=== PATIENT | female | born 1965 | race Two or more races ===

== ENCOUNTER 2024-12-16 07:35 | Emergency (ER) | payer OTHER ==
[~2024-12-16] VITALS: Ht 167.6 cm; Wt 113.4 kg
[2024-12-16] MEDS ORDERED: TOPROL XL100 M1 (07:59)
[2024-12-16] MEDS ORDERED: AVAPRO300 MG (08:02)
[2024-12-16] MEDS ORDERED: ZANAFLEX2 M1 (08:02)
[2024-12-16] MEDS ORDERED: NORFLEX100MG PO (08:56)
[2024-12-16] MEDS ORDERED: KETOROLAC TROMETHAMINE 60 MG VIAL IM ONE ×2 (08:57→09:00)
[2024-12-16] MEDS ORDERED: ORPHENADRINE CITRATE 30 MG/ML AMPUL ONE (08:57)
[2024-12-16] MEDS ORDERED: ORPHENADRINE CITRATE 30 MG/ML AMPUL IM ONE (09:00)
== END 2024-12-16 09:26 | disposition home or self-care (01) ==
LOC: ER 07:35
DX: M54.9 Dorsalgia, unspecified (principal); I10 Essential (primary) hypertension

== ENCOUNTER 2025-01-12 07:19 | Outpatient (CLI) | payer OTHER ==
[~2025-01-12 07:19] MED LIST: AVAPRO300 MG; NORFLEX100MG PO; TOPROL XL100 M1; ZANAFLEX2 M1
== END 2025-01-12 07:24 | disposition home or self-care (01) ==
LOC: RAD 07:19
PROVIDERS: ATTEND General Practice
DX: M47.25 Other spondylosis with radiculopathy, thoracolumbar region (principal); M51.16 Intervertebral disc disorders with radiculopathy, lumbar region

== ENCOUNTER 2025-02-15 06:31 | Outpatient (CLI) | payer OTHER | END 2025-02-15 06:36 | disposition home or self-care (01) | LOC: LAB 06:31 | PROVIDERS: ATTEND General Practice | DX: K85.30 Drug induced acute pancreatitis without necrosis or infection (principal) ==

== ENCOUNTER 2025-03-04 15:34 | Emergency (ER) | payer OTHER ==
[~2025-03-04] VITALS: Ht 167.6 cm; Wt 113.4 kg
[2025-03-04] MEDS ORDERED: HYDROCHLOROTHIA25 MG PO (16:48)
[2025-03-04] MEDS ORDERED: TRAMADOL HCL 50 MG TABLET PO STA (17:02)
[2025-03-04] MEDS ORDERED: BARIUM SULFATE 450 ML ORAL.SUSP PO ONE (17:12)
[2025-03-04 18:09] LABS: BASO % 0.7 % (0.1-1.2); EOS # 0.21 (0.04-0.54); EOS % 2.0 % (0.7-7.0); LYMPH # 1.31 (1.18-3.74); LYMPH % 12.5 % (19.3-53.1); MEAN PLATELET VOLUME 10.00 fl (9.4-12.4); MONO # 0.64 (0.24-0.82); MONO % 6.1 % (4.7-12.5); NEUT # 8.22 (1.56-6.13); NEUT % 78.4 % (34.0-71.1); RED CELL DISTRIBUTION WIDTH 15.6 % (11.6-14.4)
[2025-03-04 18:10] LABS: URINE BLOOD LARGE; URINE GLUCOSE NEGATIVE (NEGATIVE); URINE KETONE 15 (NEGATIVE); URINE LEUKOCYTE SMALL; URINE NITRATE POSITIVE; URINE UROBILINOGEN 1.0 E.U./dl
[2025-03-04 18:53] LABS: URINE APPEARANCE TURBID; URINE BILIRRUBIN MODERATE (NEGATIVE); URINE COLOR BROWN; URINE PROTEIN >=300 (NEGATIVE)
[2025-03-04 18:54] LABS: URINE RBC LOADED /HPF
[2025-03-04 18:55] LABS: URINE BACTERIA MODERATE; URINE CRYSTALS MANY /HPF; URINE WBC 0-2 /hpf
[2025-03-04 18:56] LABS: URINE MUCUS NEGATIVE
[2025-03-04 19:20] LABS: ALT/SGPT 18.0 U/L (12-78); AST/SGOT 41.0 U/L (15-37); BILIRUBIN TOTAL 0.69 mg/dL (0.3-1.2); BUN CREA RATIO 15.0 (7.0-25.0); CREATININE SERUM 1.76 mg/dL (0.55-1.02); GFR 29.45; GLOBULINA 3.7 G/DL (2.4-3.5); GLUCOSE FASTING 98.0 mg/dL (65-100); OSMOLALITY SERUM 286.0 MOSM/KG (275-295)
[2025-03-04] MEDS ORDERED: CEFTRIAXONE SODIUM 2,000 MG VIAL IV STA (19:51)
[2025-03-04] MEDS ORDERED: ORPHENADRINE CITRATE 30 MG/ML AMPUL IM STA (19:56)
[2025-03-04] MEDS ORDERED: ORPHENADRINE CITRATE 30 MG/ML AMPUL ONE (20:45)
[2025-03-04] MEDS ORDERED: CEFTRIAXONE SODIUM 2,000 MG VIAL ONE (20:46)
== END 2025-03-04 22:05 | disposition home or self-care (01) ==
LOC: ER 15:34
PROVIDERS: General Practice
DX: N39.0 Urinary tract infection, site not specified (principal); N20.0 Calculus of kidney; K57.30 Diverticulosis of large intestine without perforation or abscess without bleeding; I10 Essential (primary) hypertension

== ENCOUNTER 2025-04-26 06:13 | Outpatient (CLI) | payer OTHER ==
[~2025-04-26 06:13] MED LIST changes: +HYDROCHLOROTHIA25 MG PO
[2025-04-26 06:51] LABS: URINE APPEARANCE Clear; URINE BILIRRUBIN Negative (NEGATIVE); URINE BLOOD Negative; URINE COLOR Yellow; URINE GLUCOSE Negative (NEGATIVE); URINE KETONE Negative (NEGATIVE); URINE LEUKOCYTE Trace; URINE NITRATE Negative; URINE PROTEIN Negative (NEGATIVE); URINE UROBILINOGEN 0.2 E.U./dl
[2025-04-26 06:53] LABS: URINE BACTERIA 20.3 uL (0.0-1933); URINE EPITHELIAL CELLS 11.3 uL (0.0-38.8); URINE RBC 6.1 uL (0.0-20.8); URINE WBC 18.7 uL (0.0-23.2)
[2025-04-26 06:58] LABS: URINE CAST 0.14 uL (0.0-1.40)
[2025-04-26 07:01] LABS: BASO % 0.7 % (0.1-1.2); EOS # 0.27 (0.04-0.54); EOS % 3.5 % (0.7-7.0); LYMPH # 1.39 (1.18-3.74); LYMPH % 18.1 % (19.3-53.1); MEAN PLATELET VOLUME 10.10 fl (9.4-12.4); MONO # 0.61 (0.24-0.82); MONO % 7.9 % (4.7-12.5); NEUT # 5.33 (1.56-6.13); NEUT % 69.4 % (34.0-71.1); RED CELL DISTRIBUTION WIDTH 15.8 % (11.6-14.4)
[2025-04-26 07:09] LABS: CREATININE URINE RANDOM 168.0 MG/DL (30-125)
[2025-04-26 07:38] LABS: ALT/SGPT 18.0 U/L (12-78); AST/SGOT 10.0 U/L (15-37); BILIRUBIN TOTAL 0.75 mg/dL (0.3-1.2); BUN CREA RATIO 20.0 (7.0-25.0); CREATININE SERUM 1.12 mg/dL (0.55-1.02); GFR 49.62; GLOBULINA 3.4 G/DL (2.4-3.5); GLUCOSE FASTING 88.0 mg/dL (65-100); OSMOLALITY SERUM 288.0 MOSM/KG (275-295)
== END 2025-04-26 06:17 | disposition home or self-care (01) ==
LOC: LAB 06:13
PROVIDERS: ATTEND Internal Medicine Nephrology
DX: N18.30 Chronic kidney disease, stage 3 unspecified (principal)

== ENCOUNTER 2025-06-01 06:22 | Outpatient (CLI) | payer OTHER ==
[2025-06-01 07:41] LABS: URINE APPEARANCE Clear; URINE BILIRRUBIN Negative (NEGATIVE); URINE BLOOD Negative; URINE COLOR Yellow; URINE GLUCOSE Negative (NEGATIVE); URINE KETONE Negative (NEGATIVE); URINE LEUKOCYTE Negative; URINE NITRATE Negative; URINE PROTEIN Negative (NEGATIVE); URINE UROBILINOGEN 0.2 E.U./dl
[2025-06-01 07:45] LABS: URINE BACTERIA 14.8 uL (0.0-1933); URINE EPITHELIAL CELLS 9.7 uL (0.0-38.8); URINE RBC 3.9 uL (0.0-20.8); URINE WBC 3.0 uL (0.0-23.2)
[2025-06-01 07:54] LABS: BASO % 0.7 % (0.1-1.2); EOS # 0.20 (0.04-0.54); EOS % 2.9 % (0.7-7.0); LYMPH # 1.13 (1.18-3.74); LYMPH % 16.2 % (19.3-53.1); MEAN PLATELET VOLUME 10.50 fl (9.4-12.4); MONO # 0.54 (0.24-0.82); MONO % 7.8 % (4.7-12.5); NEUT # 5.02 (1.56-6.13); NEUT % 72.1 % (34.0-71.1); RED CELL DISTRIBUTION WIDTH 16.2 % (11.6-14.4); URINE CAST 0.00 uL (0.0-1.40)
[2025-06-01 08:05] LABS: ERYTHROCYTE SEDIMENTATION RATE 40 mm/hr (0-30)
[2025-06-01 08:37] LABS: ALT/SGPT 21.0 U/L (12-78); AST/SGOT 15.0 U/L (15-37); BILIRUBIN TOTAL 0.74 mg/dL (0.3-1.2); BUN CREA RATIO 18.0 (7.0-25.0); CHOL HDL RATIO 3.0 (0-5.0); CREATININE SERUM 1.11 mg/dL (0.55-1.02); GFR 50.14; GLOBULINA 3.4 G/DL (2.4-3.5); GLUCOSE FASTING 79.0 mg/dL (65-100); HDL 63.0 mg/dl (40-60); LDL 102.0 mg/dl (0-130); OSMOLALITY SERUM 288.0 MOSM/KG (275-295); TSH 3.18 uIU/mL (0.358-3.74); VLDL 23.0 (0-39)
[2025-06-02 06:06] LABS: hav igm Negative (Negative); hep b c Negative (Negative); hep b s ag Negative (Negative)
== END 2025-06-01 06:29 | disposition home or self-care (01) ==
LOC: LAB 06:22
DX: E21.1 Secondary hyperparathyroidism, not elsewhere classified (principal); B17.9 Acute viral hepatitis, unspecified; Z13.228 Encounter for screening for other metabolic disorders; R73.01 Impaired fasting glucose; B34.8 Other viral infections of unspecified site; E78.00 Pure hypercholesterolemia, unspecified; M35.00 Sjogren syndrome, unspecified; M32.9 Systemic lupus erythematosus, unspecified; M06.9 Rheumatoid arthritis, unspecified

== ENCOUNTER 2025-06-01 12:38 | Outpatient (CLI) | payer OTHER | END 2025-06-01 12:43 | disposition home or self-care (01) | LOC: SONOGRAMA 12:38 | DX: M65.872 Other synovitis and tenosynovitis, left ankle and foot (principal); M19.071 Primary osteoarthritis, right ankle and foot; M19.072 Primary osteoarthritis, left ankle and foot; N20.0 Calculus of kidney; N20.1 Calculus of ureter ==